=== PATIENT | female | born 2000 | race Asian ===

== ENCOUNTER 2020-07-09 21:10 | Emergency (ER) | payer OTHER ==
[~2020-07-09] VITALS: Ht 172.7 cm; Wt 93.4 kg
[2020-07-09 21:37] LABS: PLATELET COUNT 311 K/uL (152-353)
[2020-07-09 21:44] LABS: POTASSIUM 3.8 mmol/L (3.6-5.2)
[2020-07-09 22:45] VITALS: BP 131/79; TEMP 98.4
== END 2020-07-09 22:45 | disposition home or self-care (01) ==
LOC: ED 21:13
PROVIDERS: Emergency Medicine Emergency Medical Services
DX: F41.8 Other specified anxiety disorders (principal); S16.1XXA Strain of muscle, fascia and tendon at neck level, initial encounter; S29.011A Strain of muscle and tendon of front wall of thorax, initial encounter
CPT/HCPCS: 36415; 80053; 81000; 81025; 84443; 84484; 85027; 93005; 96360; 96375; 99284; J2060